=== PATIENT | male | born 2005 | race Hispanic/Latino ===

== ENCOUNTER 2024-08-04 20:38 | Emergency (ER) | payer MEDICAID, OTHER ==
[~2024-08-04] VITALS: Ht 170.2 cm; Wt 47.6 kg
[2024-08-04] MEDS ORDERED: IBUP-2070 PO (21:29)
[2024-08-04 21:42] VITALS: BP 116/69; PULSE 74; RESP 18; TEMP 98.2; O2SAT 98
== END 2024-08-04 21:59 | disposition home or self-care (01) ==
LOC: EDH 20:38
DX: S00.03XA Contusion of scalp, initial encounter (principal); S60.221A Contusion of right hand, initial encounter; W18.39XA Other fall on same level, initial encounter; Y93.89 Activity, other specified; Y92.89 Other specified places as the place of occurrence of the external cause; Y99.8 Other external cause status
CPT/HCPCS: 73130